=== PATIENT | male | born 1990 | race Caucasian/White ===

== ENCOUNTER 2023-05-06 04:35 | Emergency (ER) | payer OTHER, SELFPAY ==
[2023-05-06 04:37] VITALS: BP 129/91; PULSE 68; RESP 16; TEMP 36.2; O2SAT 98; BMI 28.1
--- NOTE | 2023-05-06 05:12 | ED.DENTAL1 ---
HPI - Dental/Oral General Chief complaint: Dental/Oral Stated complaint: TEETH Time Seen by Provider: 05/06/23 04:50 History of Present Illness HPI Narrative: history of dental caries. Presents complaining of acute onset of left ear pain. Points to left TMJ as site of pain. No injury,headache or fever. Able to hear ok and no associated dizziness Related Data Home Medications Medication Instructions Recorded Confirmed No Known Home Medications 05/06/23 05/06/23 Allergies Allergy/AdvReac Type Severity Reaction Status Date / Time No Known Drug Allergies Allergy Verified 05/06/23 04:42 Review of Systems ROS Status of ROS 10 or more systems reviewed and unremarkable except as noted in history and below PFS PFS Social History Smoking status: Current every day smoker Exam Constitutional Vital Signs, click to edit/add: Last Vital Signs Temp 97.2 F L 05/06/23 04:37 Pulse 68 05/06/23 04:37 Resp 16 05/06/23 04:37 BP 129/91 05/06/23 04:37 Pulse Ox 98 05/06/23 04:37 O2 Del Method Room Air 05/06/23 04:37 Common normals: no apparent distress (mild distress. Has ice bag covering left TMJ), average body habitus, oriented x3, no limitations, healthy appearing, alert and well nourished [facility] Common normals: normocephalic and head/scalp atraumatic Other: left TM with mild fluid bulge. No erythema Eye Common normals: EOMs intact bilaterally and conjunctivae normal Respiratory Common normals: normal respiratory effort, no retractions, no use of accessory muscles and clear to auscultation bilaterally Cardio Common normals: regular rate, regular rhythm, S1 normal heart sound and S2 normal heart sound Extremity Common normals: normal to inspection and full ROM Neuro Common normals: oriented x3, CN's II-XII intact bilaterally, moves all extremities, no focal motor deficits and no sensory deficits noted Psych Appearance: grossly normal Course Vital Signs Vital signs: Vital Signs Temperature 97.2 F L 05/06/23 04:37 Pulse Rate 68 05/06/23 04:37 Respiratory Rate 16 05/06/23 04:37 Blood Pressure 129/91 05/06/23 04:37 Pulse Oximetry 98 05/06/23 04:37 Oxygen Delivery Method Room Air 05/06/23 04:37 Temperature 97.2 F L 05/06/23 04:37 Pulse Rate 68 05/06/23 04:37 Respiratory Rate 16 05/06/23 04:37 Blood Pressure 129/91 05/06/23 04:37 Pulse Oximetry 98 05/06/23 04:37 Oxygen Delivery Method Room Air 05/06/23 04:37 MDM - Dental/Oral MDM Narrative Medical decision making narrative: patient presents with left ear pain and left TMJ pain. Has dental caries but they were not tender. Exam demonstrated fluid behind left TM resulting in bulge left TM. lab with mildly elevated WBC and normal CRP. Treated with Rocephin and solumedrol. pain decreased from 04/25 to 09/23 by the time of discharge. Discharged with a prescription of Augmentin and medrol and advised to follow up with his doctor in a couple of days for recheck Lab Data Labs: Lab Results 05/06/23 Range/Units 05:12 WBC 12.9 H (4.0-11.0) 10^3/uL RBC 4.45 L (4.70-6.10) 10^6/uL Hgb 14.4 (14.0-18.0) g/dL Hct 40.2 L (42.0-54.0) % MCV 90.3 (80.0-94.0) fL MCH 32.4 (25.9-34.0) pg MCHC 35.8 H (29.9-35.2) g/dL RDW 11.2 (11.0-15.0) % Plt Count 232 (150-450) 10^3/uL MPV 9.6 (9.5-13.5) fL Neut % (Auto) 64.3 (43.0-75.0) % Lymph % (Auto) 22.9 (20.5-60.0) % [place] % (Auto) 9.1 (1.7-12.0) % Eos % (Auto) 2.9 (0.9-7.0) % Baso % (Auto) 0.5 (0.2-2.0) % Neut # (Auto) 8.3 H (1.4-6.5) 10^3/uL Lymph # (Auto) 3.0 (1.2-3.8) 10^3/uL [place] # (Auto) 1.2 H (0.3-0.8) 10^3/uL Eos # (Auto) 0.4 (0.0-0.7) 10^3/uL Baso # (Auto) 0.1 (0.0-0.1) 10^3/uL Abs Immat Gran (auto) 0.04 H (0.00-0.03) 10^3/uL Imm/Tot Granulo (auto) 0.3 (0.0-0.5) % Sodium 137 (136-145) mmol/L Potassium 3.8 (3.5-5.1) mmol/L Chloride 101 (98-107) mmol/L Carbon Dioxide 28.0 (21.0-32.0) mmol/L Anion Gap 11.8 BUN 13.0 (7.0-18.0) mg/dL Creatinine 0.96 (0.70-1.30) mg/dL Est GFR ( Amer) >60 (>=60) Est GFR (Non-Af Amer) >60 (>=60) BUN/Creatinine Ratio 13.5 Glucose 113 H (74-106) mg/dL Calcium 8.7 (8.5-10.1) mg/dL C-Reactive Protein <1.0 (<=1.0) mg/dL Discharge Plan Discharge Chief Complaint: Dental/Oral Clinical Impression: Acute pain of left ear Patient Disposition: Home, Self-Care Prescriptions / Home Meds: No Action No Known Home Medications Instructions: Earache (ED) Additional Instructions: follow up with your doctor monday for recheck or with Dr Pineda Stand Alone Forms: Portal Instructions Referrals: Physician,Non-Staff, MD [Primary Care Provider] - 1 week
[2023-05-06 05:23] LABS: Basophils Absolute Auto 0.1 10^3/uL (0.0-0.1); Basophils Percent Auto 0.5 % (0.2-2.0); Eosinophils Absolute Auto 0.4 10^3/uL (0.0-0.7); Eosinophils Percent Auto 2.9 % (0.9-7.0); Hematocrit 40.2 % (42.0-54.0); Hemoglobin 14.4 g/dL (14.0-18.0); Immature Granulocytes Abs Auto 0.04 10^3/uL (0.00-0.03); Immature Granulocytes Pct Auto 0.3 % (0.0-0.5); Lymphocytes Percent Auto 22.9 % (20.5-60.0); Mean Corpuscular HGB Conc 35.8 g/dL (29.9-35.2); Mean Corpuscular Hemoglobin 32.4 pg (25.9-34.0); Mean Corpuscular Volume 90.3 fL (80.0-94.0); Mean Platelet Volume 9.6 fL (9.5-13.5); Monocytes Absolute Auto 1.2 10^3/uL (0.3-0.8); Monocytes Percent Auto 9.1 % (1.7-12.0); Neutrophils Absolute Auto 8.3 10^3/uL (1.4-6.5); Neutrophils Percent Auto 64.3 % (43.0-75.0); Platelet Count 232 10^3/uL (150-450); Red Blood Count 4.45 10^6/uL (4.70-6.10); Red Cell Distribution Width 11.2 % (11.0-15.0); White Blood Count 12.9 10^3/uL (4.0-11.0)
[2023-05-06] MEDS: KETOROLAC TROMETHAMINE 30 MG/ML VIAL IVP (05:23)
[2023-05-06] MEDS: CEFTRIAXONE 1,000 MG in 0.9 % SODIUM CHLORIDE 50 ML 100 MG IV (05:23)
[2023-05-06] MEDS: METHYLPREDNISOLONE SOD SUCC PF 125 MG/2 ML VIAL IVP (05:24)
[2023-05-06 05:28] LABS: Anion Gap 11.8; BUN Creatinine Ratio 13.5; Calcium 8.7 mg/dL (8.5-10.1); Chloride 101 mmol/L (98-107); Estimated GFR (African America >60 (>=60); Estimated GFR (Non-African Ame >60 (>=60); Glucose 113 mg/dL (74-106); Potassium 3.8 mmol/L (3.5-5.1); Sodium 137 mmol/L (136-145)
[2023-05-06 05:31] LABS: C Reactive Protein <1.0 mg/dL (<=1.0)
== END 2023-05-06 06:30 | disposition home or self-care (01) ==
PROVIDERS: Emergency Provider Internal Medicine
DX: H92.02 Otalgia, left ear (principal); F17.210 Nicotine dependence, cigarettes, uncomplicated
CPT/HCPCS: 36415; 80048; 85025; 86140; 96365; 96375; 99284; J2930